=== PATIENT | female | born 1955 | race Caucasian/White ===

== ENCOUNTER 2021-02-24 14:32 | Emergency (ER) | payer MEDICARE, BC, SELFPAY ==
[2021-02-24] VITALS (10 sets, daily range): BP systolic 134; BP diastolic 63; PULSE 85–103; RESP 20; TEMP 38.8; O2SAT 90–93; BMI 26.6
--- NOTE | 2021-02-24 15:13 | DI.RAD.S_ITS ---
PROCEDURE: XR CHEST 1V INDICATIONS: worsening SOB, COVID + TECHNIQUE: One view of the chest was acquired. COMPARISON: None. FINDINGS: Surgical changes and devices: None. Lungs and pleura: Left greater than right peripheral, bibasilar airspace opacities. No pleural effusions or pneumothorax. Mediastinum: Mediastinal contours appear normal. Heart size is normal. Bones and chest wall: No suspicious bony lesions. Overlying soft tissues appear unremarkable. IMPRESSION: Bibasilar airspace opacities as detailed above, concerning for an atypical (viral) infectious process. Dictated by: Sanket Cowart M.D. on 02/24/2021 at 16:03 Approved by: Sanket Cowart M.D. on 02/24/2021 at 16:04
--- NOTE | 2021-02-24 15:16 | ED.URI ---
HPI - URI/Sore Throat <KIMMY Glover Last Filed: 02/24/21 19:33> General Chief Complaint: Upper Respiratory Symptoms Stated Complaint: Covid+, trouble breathing, fever Time Seen by Provider: 02/24/21 14:41 Source: patient Mode of arrival: Ambulatory Limitations: no limitations History of Present Illness HPI Narrative: Patient is a 65-year-old female presenting to the emergency department today for an evaluation cough, shortness of breath, and fever. Patient states that she took a COVID test at home this morning which came back positive. Patient states that she has experienced symptoms fever, sore throat, headache, body aches, fatigue, chills, shortness of breath for 2 weeks with 1 episode of nonbloody nonbilious emesis this morning. Of note, patient states she is not vaccinated she reports a positive diagnosis of COVID-19 back in April of 2018. She did not require hospitalization as a result of her 1st COVID-19 diagnosis. Patient denies chest pain, abdominal pain, diarrhea, current sore throat, dysuria. No further concerns voiced at this time. Review of Systems <KIMMY Glover Last Filed: 02/24/21 19:33> Constitutional Constitutional: Reports chills, Reports fever(s), Reports lethargy and Denies weakness ENT Ears, Nose, Mouth, and Throat: Denies change in voice, Denies neck pain, Denies sore throat and Denies throat swelling Cardiovascular Cardiovascular: Denies chest pain, Denies irregular heart rhythm, Denies lightheadedness, Denies palpitations, Reports dyspnea, Reports dyspnea on exertion and Reports orthopnea Respiratory Respiratory: Reports cough, Reports dyspnea, Reports dyspnea on exertion and Denies wheezing Gastrointestinal Gastrointestinal: Denies abdominal pain, Denies change in bowel habits, Denies diarrhea and Reports vomiting Musculoskeletal Musculoskeletal: Denies neck pain Integumentary/Breasts Skin/Breast: Denies pruritus, Denies erythema, Denies rash and Denies wounds Neurologic Neurologic: Denies weakness Endocrine Endocrine: Denies palpitations Allergic/Immunologic Allergic/Immunologic: Denies urticaria, Denies throat swelling and Denies wheezing Patient History <KIMMY Glover Last Filed: 02/24/21 19:33> Social History Smoking Status: Never smoker Smoking Status: Never smoker alcohol intake frequency: 0-2 drinks per day Substance Use Type: does not use Exam <Chris Omalley PA-C - Last Filed: 02/24/21 19:33> Narrative Exam Narrative: GENERAL: 65 year old patient appears stated age. Well-developed patient, in no acute distress. HEAD: Atraumatic. Normocephalic. EYES: Pupils equal round and reactive. Extraocular motions intact. No scleral icterus. No injection or drainage. ENT: Nose without bleeding, purulent drainage. Throat without erythema, tonsillar hypertrophy or exudate. Airway patent. NECK: Trachea midline. Non tender CARDIOVASCULAR: Regular rate and rhythm without murmurs, gallops, or rubs. RESPIRATORY: Scattered crackles throughout the bilateral lung montalvo on auscultation. Breath sounds equal bilaterally. GASTROINTESTINAL: Abdomen soft, non-tender, nondistended. EXTREMITIES: No edema or joint tenderness. BACK: Nontender without deformity or crepitance. No flank tenderness. NEURO: AOx3. SKIN: No rash or erythema of visible areas Initial Vital Signs Initial Vital Signs: Vital Signs Pulse Rate 94 H 02/24/21 14:46 Blood Pressure 134/63 02/24/21 14:46 Pulse Oximetry 92 02/24/21 14:46 <Arsh Bravo DO - Last Filed: 02/24/21 19:48> Initial Vital Signs Initial Vital Signs: Vital Signs Pulse Rate 94 H 02/24/21 14:46 Blood Pressure 134/63 02/24/21 14:46 Pulse Oximetry 92 02/24/21 14:46 Course <Chris Omalley PA-C - Last Filed: 02/24/21 19:33> Course Course Narrative: Patient is a 65-year-old female presenting to the emergency department today for an evaluation cough, shortness of breath, and fever. Orders Ordered: ED Orders 02/24/21 15:13 XR chest 1V Stat Discontinued Medications Acetaminophen (Acetaminophen 325 Mg Tablet) 650 mg PO NOW ONE Stop: 02/24/21 16:18 Last Admin: 02/24/21 16:38 Dose: 650 mg Documented by: ISAIAHE Vital Signs Vital signs: Vital Signs - 8 hr 02/24/21 14:46 02/24/21 14:49 02/24/21 15:00 Temperature 101.9 F H Pulse Rate 94 H 88 95 H Respiratory Rate 20 Blood Pressure 134/63 134/63 Pulse Oximetry 92 93 92 02/24/21 15:30 02/24/21 16:00 02/24/21 16:30 Temperature Pulse Rate 90 85 92 H Respiratory Rate Blood Pressure Pulse Oximetry 92 90 L 90 L 02/24/21 17:00 02/24/21 17:30 02/24/21 18:00 Temperature Pulse Rate 94 H 100 H 103 H Respiratory Rate Blood Pressure Pulse Oximetry 92 92 92 02/24/21 18:14 Temperature Pulse Rate Respiratory Rate Blood Pressure 134/63 Pulse Oximetry 92 <Arsh Bravo DO - Last Filed: 02/24/21 19:48> Orders Ordered: ED Orders 02/24/21 15:13 XR chest 1V Stat Discontinued Medications Acetaminophen (Acetaminophen 325 Mg Tablet) 650 mg PO NOW ONE Stop: 02/24/21 16:18 Last Admin: 02/24/21 16:38 Dose: 650 mg Documented by: NATHALIA Vital Signs Vital signs: Vital Signs - 8 hr 02/24/21 14:46 02/24/21 14:49 02/24/21 15:00 Temperature 101.9 F H Pulse Rate 94 H 88 95 H Respiratory Rate 20 Blood Pressure 134/63 134/63 Pulse Oximetry 92 93 92 02/24/21 15:30 02/24/21 16:00 02/24/21 16:30 Temperature Pulse Rate 90 85 92 H Respiratory Rate Blood Pressure Pulse Oximetry 92 90 L 90 L 02/24/21 17:00 02/24/21 17:30 02/24/21 18:00 Temperature Pulse Rate 94 H 100 H 103 H Respiratory Rate Blood Pressure Pulse Oximetry 92 92 92 02/24/21 18:14 Temperature Pulse Rate Respiratory Rate Blood Pressure 134/63 Pulse Oximetry 92 MDM - URI/Sore Throat <Chris Omalley PA-C - Last Filed: 02/24/21 19:33> Imaging Data Chest x-ray: Radiologist's Impression: PROCEDURE: XR CHEST 1V INDICATIONS: worsening SOB, COVID + TECHNIQUE: One view of the chest was acquired. COMPARISON: None. FINDINGS: Surgical changes and devices: None. Lungs and pleura: Left greater than right peripheral, bibasilar airspace opacities. No pleural effusions or pneumothorax. Mediastinum: Mediastinal contours appear normal. Heart size is normal. Bones and chest wall: No suspicious bony lesions. Overlying soft tissues appear unremarkable. IMPRESSION: Bibasilar airspace opacities as detailed above, concerning for an atypical (viral) infectious process. Dictated by: Sanket Cowart M.D. on 02/24/2021 at 16:03 Approved by: Sanket Cowart M.D. on 02/24/2021 at 16:04 [facility] Narrative Medical decision making narrative: Patient is a 65-year-old female presenting to the emergency department today for an evaluation cough, shortness of breath, and fever. To consider COVID-19 versus pneumonia versus viral upper respiratory infection versus atelectasis. Physical exam and history consistent with diagnosis of COVID-19. Chest x-ray ordered to rule out pneumonia or atelectasis. Chest x-ray came back showing an atypical viral infectious process. Patient ambulated in the emergency room and oxygen saturation dropped to 88%. Discussed with patient the benefits of admission and further testing. Patient declines further workup at this time, stating that she feels much better and she feels that she will be just fine at home. Discussed with patient the risks associated with her oxygen saturation dropping, but at this time she would prefer to be discharged home. Strict return precautions were discussed with the patient prior to discharge. Discharge Plan Departure Patient Disposition: Home Clinical Impression: COVID-19 Instructions: Coronavirus Disease 2019 Activity Restrictions/Additional Instructions: *You have been diagnosed with COVID-19 *What to do: *Please continue to take your regular medications as directed. [ ] New medication prescriptions sent to your pharmacy: [ ] [ ] New medication written as a paper prescription [X] No new medications given *Please follow up with your primary care provider in the next 24-48 hours, call for an appointment. Let them know you were seen in the Emergency Department and that we ask that you be seen in follow up. We will electronically transmit a record of today's note if your PCP is in our system. Please obtain pulse oximeter upon discharge from hospital and monitor oxygen saturation consistently. *If you do not have a primary care provider please contact the [facility] Resource line at [phone]. They will ask some questions about your medical history and help get you set up with a doctor in the community. *Return to Emergency Department if you should have any new, worsening or concerning symptoms, such as fever greater than 101 F, shaking chills, worsening shortness of breath, oxygen saturation below 90% persistent vomiting or other bothersome symptoms. <Arsh Bravo, DO - Last Filed: 02/24/21 19:48> [facility] Dr Bravo Co-Sign Statement: I was available for consultation during this patient's emergency department visit. This chart is signed by myself for administrative purposes only. I did not have direct contact with this patient during this visit. They were seen independently by the APC.
[2021-02-24] MEDS: ACETAMINOPHEN 325 MG TABLET 650 MG PO (16:38)
== END 2021-02-24 18:15 | disposition home or self-care (01) ==
PROVIDERS: Emergency Provider Physician Assistant
DX: U07.1 COVID-19 (principal); R06.02 Shortness of breath; R50.9 Fever, unspecified
CPT/HCPCS: 36415; 71045; 99283